=== PATIENT | female | born 1990 | race Caucasian/White ===

== ENCOUNTER 2017-02-28 14:38 | Emergency (ER) | payer OTHER ==
--- NOTE | 2017-02-28 15:31 | ED NURSING NOTES ---
Clinical Report - Nurses [facility] [place] [address] 02/28/2017 14:39 Patient: DANIEL HENRIQUEZ TRIAGE Triage time 14:47 Feb 28 2017. Acuity: LEVEL 4. Chief Complaint: INJURY TO RIGHT HAND. INJURY TO THE RIGHT MIDDLE FINGER (base of middle finger, lac from metal). Alert. No acute distress. SEPSIS SCREEN: Sepsis Screen. Negative (no infection suspected/documented). SAMMY COMA SCORE: Sammy Coma Scale: 15- eyes open spontaneously (4); best verbal response- oriented x 4 (5); best motor response- obeys commands (6). --14:52 Raf Estrada R.N. 14:47 02/28/17. BP: 118/57. HR: 81. RR: 17. O2 saturation: 100%. Temp: 98.1 F. Pain level now: 11/20. --14:52 Raf Estrada R.N. Weight: 68 kg stated. Height/Length: 64 inches Per Patient. BMI: 25.8. --14:49 Raf Estrada R.N. Medications None. --14:49 Raf Estrada R.N. Medication/allergy information source: the patient. --14:52 Raf Estrada R.N. Allergies None. --14:49 Raf Estrada R.N. History Arrived by private vehicle. Historian: patient. Accompanied by family. This occurred (5 hours ago). She sustained a laceration from a sharp edge. 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 PAST MEDICAL HX: Tetanus status: up-to-date. Immunizations: up-to-date and (Tdap- 2 years ago). SOCIAL HX: Smoker- current status unknown. No alcohol use or drug use. No infectious disease exposure. ABUSE ASSESSMENT: No report of abuse. SELF HARM ASSESSMENT: A self harm assessment was performed. The patient answered "no" to the question "Do you have thoughts of harming or killing yourself?". FALL RISK ASSESSMENT: Fall risk assessment completed. No fall risk identified. NUTRITIONAL RISK ASSESSMENT: The nutritional risk assessment revealed no deficiencies. FUNCTIONAL ASSESSMENT: Functional assessment: no impairments noted. LEARNING NEEDS ASSESSMENT: The learning needs assessment revealed no barriers. SKIN INTEGRITY ASSESSMENT: Skin integrity risk assessment completed. No skin integrity risk identified. --14:52 Raf Estrada R.N. PROBLEMS: . UTI - Urinary Tract Infection. Vulvovaginitis. --14:49 Raf Estrada R.N. ADDITIONAL SURGERIES: no known surgeries. Interventions ID band on patient. --14:52 Raf Estrada R.N. PHYSICAL ASSESSMENT Ambulatory to room. GENERAL / NEURO / PSYCH: Oriented X 4. Alert. Appears in no acute distress. EXTREMITIES: Capillary refill is less than 2 seconds in the extremities. Extremity pulses are within normal limits. Extremities exhibit normal ROM. Neuro-vascular status intact to the extremity. Right hand: (base of finger 3 lac from metal dog house). SKIN: Skin intact. Skin is warm and dry. --14:53 Raf Estrada R.N. NURSING PROGRESS NOTES Neuro-vascular extremity check. Patient identifiers checked. Call light placed in reach. Side rails up. Bed placed in lowest position. Brakes of bed on. Patient ready for evaluation- chart flagged. Patient waiting for evaluation. --14:53 Raf Estrada R.N. DISPOSITION / DISCHARGE Departure time: 15:35 Feb 28 2017. Condition at departure: improved and stable. No learning barriers present. Discharge instructions provided and reviewed with the patient. Reviewed wound care instructions. Patient verbalized understanding. Written instructions provided in [place]. The patient was discharged by the nurse practitioner. She was discharged home and accompanied by spouse. She left the Emergency Department ambulatory and via private vehicle. Spouse driving. --16:48 Lidia Wood R.N. 16:47 02/28/17. BP: deferred. Additional comments: Pt in ED less than 1 hour. --16:48 Lidia Wood R.N. Locked/Released at 02/28/2017 16:48 by Lidia Wood R.N.
--- NOTE | 2017-02-28 15:31 | ED NURSING NOTES ---
Clinical Report - Nurses [facility] [place] [address] 02/28/2017 14:39 Patient: DANIEL HENRIQUEZ TRIAGE Triage time 14:47 Feb 28 2017. Acuity: LEVEL 4. Chief Complaint: INJURY TO RIGHT HAND. INJURY TO THE RIGHT MIDDLE FINGER (base of middle finger, lac from metal). Alert. No acute distress. SEPSIS SCREEN: Sepsis Screen. Negative (no infection suspected/documented). SAMMY COMA SCORE: Sammy Coma Scale: 15- eyes open spontaneously (4); best verbal response- oriented x 4 (5); best motor response- obeys commands (6). --14:52 Raf Estrada R.N. 14:47 02/28/17. BP: 118/57. HR: 81. RR: 17. O2 saturation: 100%. Temp: 98.1 F. Pain level now: 11/20. --14:52 Raf Estrada R.N. Weight: 68 kg stated. Height/Length: 64 inches Per Patient. BMI: 25.8. --14:49 Raf Estrada R.N. Medications None. --14:49 Raf Estrada R.N. Medication/allergy information source: the patient. --14:52 Raf Estrada R.N. Allergies None. --14:49 Raf Estrada R.N. History Arrived by private vehicle. Historian: patient. Accompanied by family. This occurred (5 hours ago). She sustained a laceration from a sharp edge. 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 PAST MEDICAL HX: Tetanus status: up-to-date. Immunizations: up-to-date and (Tdap- 2 years ago). SOCIAL HX: Smoker- current status unknown. No alcohol use or drug use. No infectious disease exposure. ABUSE ASSESSMENT: No report of abuse. SELF HARM ASSESSMENT: A self harm assessment was performed. The patient answered "no" to the question "Do you have thoughts of harming or killing yourself?". FALL RISK ASSESSMENT: Fall risk assessment completed. No fall risk identified. NUTRITIONAL RISK ASSESSMENT: The nutritional risk assessment revealed no deficiencies. FUNCTIONAL ASSESSMENT: Functional assessment: no impairments noted. LEARNING NEEDS ASSESSMENT: The learning needs assessment revealed no barriers. SKIN INTEGRITY ASSESSMENT: Skin integrity risk assessment completed. No skin integrity risk identified. --14:52 Raf Estrada R.N. PROBLEMS: . UTI - Urinary Tract Infection. Vulvovaginitis. --14:49 Raf Estrada R.N. ADDITIONAL SURGERIES: no known surgeries. Interventions ID band on patient. --14:52 Raf Estrada R.N. PHYSICAL ASSESSMENT Ambulatory to room. GENERAL / NEURO / PSYCH: Oriented X 4. Alert. Appears in no acute distress. EXTREMITIES: Capillary refill is less than 2 seconds in the extremities. Extremity pulses are within normal limits. Extremities exhibit normal ROM. Neuro-vascular status intact to the extremity. Right hand: (base of finger 3 lac from metal dog house). SKIN: Skin intact. Skin is warm and dry. --14:53 Raf Estrada R.N. NURSING PROGRESS NOTES Neuro-vascular extremity check. Patient identifiers checked. Call light placed in reach. Side rails up. Bed placed in lowest position. Brakes of bed on. Patient ready for evaluation- chart flagged. Patient waiting for evaluation. --14:53 Raf Estrada R.N. DISPOSITION / DISCHARGE Departure time: 15:35 Feb 28 2017. Condition at departure: improved and stable. No learning barriers present. Discharge instructions provided and reviewed with the patient. Reviewed wound care instructions. Patient verbalized understanding. Written instructions provided in [place]. The patient was discharged by the nurse practitioner. She was discharged home and accompanied by spouse. She left the Emergency Department ambulatory and via private vehicle. Spouse driving. --16:48 Lidia Wood R.N. 16:47 02/28/17. BP: deferred. Additional comments: Pt in ED less than 1 hour. --16:48 Lidia Wood R.N. Locked/Released at 02/28/2017 16:48 by Lidia Wood R.N.
--- NOTE | 2017-02-28 15:31 | ED CLINICAL REPORT ---
Clinical Report - Physicians/Mid Levels [facility] [address] [place] [address] 02/28/2017 14:39 Patient: DANIEL HENRIQUEZ Time Seen: 1510 PM. Arrived- By private vehicle. Historian- patient. HISTORY OF PRESENT ILLNESS Chief Complaint: Injury to right hand. The injury happened just prior to arrival. The patient sustained a laceration from a sharp edge. Occurred at home. Patient is experiencing mild pain. No other injury. REVIEW OF SYSTEMS The patient sustained a single laceration to the right hand. No swelling, tingling, numbness, weakness or suspected foreign body. PAST HISTORY See nurses notes. The patient has not had a prior injury to the same area. Last tetanus: ("current" 2 years ago). SOCIAL HISTORY Smoker - current status unknown. No alcohol use or drug use. ADDITIONAL NOTES The nursing notes have been reviewed. PHYSICAL EXAM Vital Signs: 02/28/2017 14:47 BP: 118/57. HR: 81. RR: 17. O2 saturation: 100%. Temp: 98.1 F. Pain level now: 2/10. Have been reviewed and appear to be correct. Appearance: Alert. Oriented X3. No acute distress. Head: Head atraumatic. Skin: Skin warm and dry. Normal skin color. Normal skin turgor. Extremities: No signs of infection present in the upper extremities. Dorsal right hand: superficial 0.5 cm laceration. SEE LACERATION PROCEDURE NOTE #1 (lac 3rd knuckle). No erythema, tenderness, swelling, abrasion or ecchymosis. No puncture wound, foreign body or deformity. No limitation of extension. Extremities otherwise negative. Neuro, Vascular and Tendons: Vascular status intact. Sensation intact. Motor intact. Tendon function intact. Neuro: Oriented X 3. PROGRESS AND PROCEDURES Laceration Repair: Time: 1515 PM. Location: right hand (3rd knuckle). Length: 0.5cm. Complexity: simple (local anesthesia used and sutured). Wound depth/shape- curved. Wound is clean. Distal neuro/vascular/tendon status normal. No sensory deficit, motor deficit or vascular deficit distally. No ligament or tendon injury. Local anesthesia provided using 1% lidocaine. Prepped with Betadine. Wound irrigated with normal saline. Closure of skin: 5-0 Prolene. Post-procedure: she is stable and there are no complications. Bleeding is controlled and neuro-vascular status is intact distal to the wound. Dressing applied. Tetanus immunization up-to-date. Course of Care: Repair well tolerated. Dressed w/ bacitracin and bulky dressing. Patient is stable. Patient and family counseled in person regarding the patient's condition, test results, diagnosis, need for follow-up and wound care. Disposition: Discharged. Condition: stable. CLINICAL IMPRESSION Single laceration to the right hand.No foreign body present. INSTRUCTIONS Elevate affected areas above chest level. Protect wound and keep wound area clean. Change dressing daily. Keep wounds dry. Sutures should be removed in ten days. Limit use of your hand for two days. (As we discussed, I would like your PCP to recheck the wound at suture removal time to check on mobility/any adhesion. If looks good, you can massage the incision). Warnings: GENERAL WARNINGS: Return or contact your physician immediately if your condition worsens or changes unexpectedly, if not improving as expected, or if other problems arise. Follow-up: Follow up with your doctor in about ten days for suture removal. Understanding of the discharge instructions verbalized by patient and family. (Electronically signed by Chayito Holman A.R.N.P. 02/28/2017 15:37)
--- NOTE | 2017-02-28 16:48 | ED DISCHARGE INSTRUCTIONS ---
Patient: DANIEL HENRIQUEZ General Instructions [facility] VisitID: [id number] [place] [address] 26y, F Registration Date/Time: 02/28/2017 Single laceration to the right hand.No foreign body present. INSTRUCTIONS Elevate affected areas above chest level. Protect wound and keep wound area clean. Change dressing daily. Keep wounds dry. Sutures should be removed in ten days. Limit use of your hand for two days. (As we discussed, I would like your PCP to recheck the wound at suture removal time to check on mobility/any adhesion. If looks good, you can massage the incision). Warnings: GENERAL WARNINGS: Return or contact your physician immediately if your condition worsens or changes unexpectedly, if not improving as expected, or if other problems arise. Follow-up: Follow up with your doctor in about ten days for suture removal. Understanding of the discharge instructions verbalized by patient and family. ADDITIONAL INFORMATION Laceration, Extremity (Sutures, [place], Or Tape) A laceration is a cut through the skin. This will usually require stitches (sutures) or santos if it is deep. Minor cuts may be treated with surgical tape closures. Home care The following guidelines will help you care for your laceration at home: Keep the wound clean and dry. If a bandage was applied and it becomes wet or dirty, replace it. Otherwise, leave it in place for the first 24 hours, then change it once a day or as directed. If stitches or santos were used, clean the wound daily: After removing the bandage, wash the area with soap and water. Use a wet cotton swab to loosen and remove any blood or crust that forms. After cleaning, keep the wound clean and dry. Talk with your doctor before applying any antibiotic ointment to the wound. Reapply the bandage. You may remove the bandage to shower as usual after the first 24 hours, but do not soak the area in water (no swimming) until the stitches or santos are removed. If surgical tape closures were used, keep the area clean and dry. If it becomes wet, blot it dry with a towel. The doctor may prescribe an antibiotic cream or ointment to prevent infection. Do not stop taking this medication until you have finished the prescribed course or the doctor tells you to stop. The doctor may also prescribe medications for pain. Follow the doctors instructions for taking these medications. If you have chronic liver or kidney disease or ever had a stomach ulcer or GI bleeding, talk with your doctor before using these medicines. Follow-up care Follow up with your health care provider. Most skin wounds heal within ten days. However, an infection may sometimes occur despite proper treatment. Therefore, check the wound daily for the signs of infection listed below. Stitches and santos should be removed within 714 days. If surgical tape closures were used, you may remove them after 10 days, if they have not fallen off by then. Notify your doctor if you notice persistent numbness or weakness in the injured extremity. (Note:A radiologist will review any X-rays that were taken. We will notify you of any new findings that may affect your care.) When to seek medical care Get prompt medical attention if any of these occur: Increasing pain in the wound Redness, swelling, or pus coming from the wound Fever of 100.4F (38C) or higher, or as directed by your health care provider If stitches or santos come apart or fall out before your next appointment If the surgical tape closures fall off within seven days, or the wound edges re-open Bleeding not controlled by direct pressure You have been given the following additional information: Laceration, Extrem (Suture, Staple, Or Tape) Limit use of your hand for two days. (Electronically signed by Chayito Holman A.R.N.P. 02/28/2017 15:37)
--- NOTE | 2017-02-28 16:48 | ED MED RECONCILIATION SUMMARY ---
Patient: DANIEL HENRIQUEZ Medication Reconciliation Report [facility] VisitID: [id number] [address] [place] [place] [address] 26y, F Registration Date/Time: 02/28/2017 Weight: 68.0 kg Height/Length: 64 in. BMI: 25.8 ALLERGIES: None The patient's Home Medications are listed below: NONE. The source(s) of the original Home Medication information: patient The following Medications were given to the patient in the Emergency Department: None. The following Medications were prescribed to the patient: None.
--- NOTE | 2017-02-28 16:48 | ED MAR SUMMARY ---
..... Medication Administration Record [facility] [address] [place], [place] [id number] Patient: DANIEL HENRIQUEZ Visit ID: [id number] 26y, F Weight: 68.0 kg Height/Length: 64 in BMI: 25.8 ALLERGIES: None
--- NOTE | 2017-02-28 16:48 | ED MAR SUMMARY ---
..... Medication Administration Record [facility] [address] [place], [place] [id number] Patient: DANIEL HENRIQUEZ Visit ID: [id number] 26y, F Weight: 68.0 kg Height/Length: 64 in BMI: 25.8 ALLERGIES: None
--- NOTE | 2017-02-28 16:48 | ED MED RECONCILIATION SUMMARY ---
Patient: DANIEL HENRIQUEZ Medication Reconciliation Report [facility] VisitID: [id number] [address] [place] [address] 26y, F Registration Date/Time: 02/28/2017 Weight: 68.0 kg Height/Length: 64 in. BMI: 25.8 ALLERGIES: None The patient's Home Medications are listed below: NONE. The source(s) of the original Home Medication information: patient The following Medications were given to the patient in the Emergency Department: None. The following Medications were prescribed to the patient: None.
== END 2017-02-28 15:40 | disposition home or self-care (01) ==
LOC: ED SRH 14:38
DX: S61.411A Laceration without foreign body of right hand, initial encounter (principal); W26.8XXA Contact with other sharp object(s), not elsewhere classified, initial encounter; Y93.9 Activity, unspecified; Y99.9 Unspecified external cause status; Y92.009 Unspecified place in unspecified non-institutional (private) residence as the place of occurrence of the external cause